=== PATIENT | female | born 1990 ===

== ENCOUNTER 2020-07-13 11:09 | Emergency (ER) | payer OTHER ==
[~2020-07-13] VITALS: Ht 162.6 cm; Wt 59.0 kg
[2020-07-13] MEDS ORDERED: SULFAMETHOXAZO1 EACH (11:18)
[2020-07-13] MEDS ORDERED: URINARY PAIN RE95 MG (11:19)
== END 2020-07-13 14:39 | disposition home or self-care (01) ==
LOC: ER 11:09
DX: N39.0 Urinary tract infection, site not specified (principal); M54.5 Low back pain